=== PATIENT | female | born 1975 | race Two or more races ===

== ENCOUNTER 2018-11-10 11:09 | Inpatient (IN) ==
--- NOTE | 2018-11-10 13:26 | DR.H&P ---
H&P - History & Physical for Day of: H&P Date: 11/10/18 - Chief Complaint Chief Complaint: SOB, CCC, WHEEZING, FATIGUE - History of Present Illness History of Present Illness: 43 HF DIRECT ADMIT FROM DR MACHAOD OFFICE WITH CO SOB, WEAKNESS AND DIZZINESS, CCC WITH WHEEZING. PT HAS BEEN TREATED SINCE 10/16 WITH BRONCHITIS SYMPTOMS WITHOUT IMPROVEMENT. PT HAS HAD IM ROCEPHIN AND IM DECADRON STEROIDS WITH PO ZITHROMAX WITHOUT IMPROVEMENT. PT HAS PMH OF HTN, DENIES ANY DM, ASTHMA OR CAD. PT ADMITTED FOR TREATMENT OF ACUTE RESP ILLNESS. 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 - Social History Does patient currently use any type of tobacco product: No Have you used tobacco products in the last 12 months: No Type of Tobacco Use: None Does any household member use tobacco: No Alcohol Use: None Drug Use: None - Medications Home Medications: hydrocodone Allergy (Verified 04/10/18 12:51) - Review of Systems Constitutional: Fever, Chills, Weakness, Malaise Eyes: No Symptoms Reported ENT: Nose Congestion Respiratory: Cough, Shortness of Breath, SOB with Excertion, Pleuritic Pain, Sputum, Wheezing Cardiovascular: No Symptoms Reported, Light Headedness Gastrointestinal: Nausea Genitourinary: No Symptoms Reported Musculoskeletal: No Symptoms Reported Skin: No Symptoms Reported Neurological: Weakness - Physical Exam Vital Signs: Blood Pressure 123/68 Oriented: Normal Eyes: Normal Ear: Normal Nose: Normal Throat: Normal Respiratory: Wheezes Throughout, RLL Diminished, LLL Diminished Cardiovascular: Tachycardia. negative: Edema : Normal Auscultation: Bowel Sounds: Normal Palpation: Normal Tenderness: Normal Skin: Normal Musculoskeletal: Normal Psychiatric: Anxiety Affect: Anxious Speech Pattern: Clear, Appropriate - Assessment/Plan (1) SOB (shortness of breath) Status: Acute Plan: ADMIT, CXR ON ADMISSION. BLOOD AND SPUTUM CULTURE. IV ATBX, ANTITUSSIVE, ADMISSION LABS CBC CMP. BP CONTROL, RESP THERAPY, SUPPLEMENTAL O2. EKG ON ADMISSION (2) Bronchopneumonia Status: Acute - Allergies Allergies/Adverse Reactions: Allergies Allergy/AdvReac Type Severity Reaction Status Date / Time hydrocodone Allergy Verified 04/10/18 12:51
[2018-11-10] MEDS ORDERED: PATIENT'S HOME MEDICATION (Lisinopril-Hydrochlorothiazide [Lisinopril-Hydrochlorothiazide] PO SCH (13:30)
--- NOTE | 2018-11-10 14:15 | RAD ---
History: Weight loss and shortness of breath Study: PA and lateral chest Comparison: None Findings: There is limited inspiration of grossly clear lungs. The heart size is normal. There is no edema or effusion. No significant bony abnormality is demonstrated. Impression: No evidence for acute or active cardiopulmonary disease Reported By:
[2018-11-10] MEDS ORDERED: NS 1/2 1000 ML IV 1,000 ML IV ONE (14:38)
[2018-11-10] MEDS ORDERED: ZESTRIL TAB 20 MG ONE (14:38)
[2018-11-10 14:40] LABS: BASOPHILS # (AUTO) 0.1 X10^3/uL (0.0-0.1); BASOPHILS % (AUTO) 0.7 % (0.2-1.0); EOSINOPHILS # (AUTO) 0.1 x10^3/uL (0.0-0.2); EOSINOPHILS % (AUTO) 1.8 % (0.9-2.9); HEMATOCRIT 38.2 % (36.0-47.0); HEMOGLOBIN 12.7 g/dL (12.0-16.0); LYMPHOCYTES # (AUTO) 2.5 X10^3/uL (1.3-2.9); LYMPHOCYTES % (AUTO) 31.2 % (21.0-51.0); MEAN CORPUSCULAR HEMOGLOBIN 27.1 pg (27.0-34.0); MEAN CORPUSCULAR HGB CONC 33.3 g/dL (33.0-35.0); MEAN CORPUSCULAR VOLUME 81.5 fL (80.0-100.0); MEAN PLATELET VOLUME 9.8 fL (7.4-11.0); MONOCYTES # (AUTO) 0.5 x10^3/uL (0.3-0.8); MONOCYTES % (AUTO) 6.1 % (0.0-13.0); NEUTROPHILS # (AUTO) 4.7 x10^3/uL (2.2-4.8); NEUTROPHILS % (AUTO) 60.2 % (42.0-75.0); PLATELET COUNT 256 X10^3/uL (150.0-450.0); RED CELL DISTRIBUTION WIDTH 13.1 % (11.6-16.5); WHITE BLOOD COUNT 7.9 X10^3/uL (3.6-10.0)
[2018-11-10 14:51] LABS: ALANINE AMINOTRANSFERASE 38 Units/L (12-78); ALBUMIN 3.9 g/dL (3.4-5.0); ALKALINE PHOSPHATASE 114 Units/L (46-116); ASPARTATE AMINO TRANSFERASE 21 Units/L (15-37); BLOOD UREA NITROGEN 8 mg/dL (7-18); CALCIUM 9.4 mg/dL (8.5-10.1); CARBON DIOXIDE 29.7 mmol/L (21-32); CHLORIDE 102 mmol/L (98-107); CREATININE 0.47 mg/dL (0.55-1.02); SODIUM 139 mmol/L (136-145); TOTAL PROTEIN 8.2 g/dL (6.4-8.2); eGFR NON BLACK RACES > 60 (>60)
[2018-11-10] MEDS: HYDROCHLOROTHIAZIDE 12.5 MG CAP PO SCH (15:07)
[2018-11-10] MEDS: LEVAQUIN PREMIX IV 750 MG 750 MG/150 ML BAG IV SCH (15:07)
[2018-11-10] MEDS: ZOSYN VIAL 4.5 GRAMS 4.5 G in NS 100 ML IV + SPIKE MINIBAG* 100 ML IV SCH ×2 (15:07→21:57)
[2018-11-10] MEDS: ZESTRIL TAB 20 MG PO SCH (15:07)
[2018-11-10] MEDS: NS 1/2 1000 ML IV 1,000 ML IV SCH (15:08)
[2018-11-10] MEDS: PROVENTIL NEB TX 0.083% 2.5MG/ 3ML NEB SCH ×2 (17:00→20:58)
[2018-11-10] MEDS: ROBITUSSIN DM PO SCH ×2 (18:32→21:57)
[2018-11-10] MEDS ORDERED: KLOR-CON PO PRN (19:40)
[2018-11-10] MEDS ORDERED: MAGNESIUM SULFATE 1 GRAM/100 mL PREMIX 1 GM/100 ML BAG IV PRN (19:40)
[2018-11-10] MEDS ORDERED: POTASSIUM CHLORIDE LIQ 20 MEQ UDC PO PRN (19:40)
[2018-11-10] MEDS ORDERED: K-DUR TAB 20 MEQ PO PRN (19:40)
[2018-11-10] MEDS ORDERED: POTASSIUM CHL 40 MEQ/NS 0.45% 500 ML IV PRN (19:40)
[2018-11-10] MEDS ORDERED: K-RIDER 10 MEQ/NS 100 ML 10 MEQ/100 ML BAG IV PRN (19:40)
[2018-11-10] MEDS ORDERED: MICRO K EXTEN CAP 10 MEQ PO PRN (19:40)
[2018-11-10] MEDS ORDERED: POTASSIUM CHL 60 MEQ/NS 0.45% 500 ML IV PRN (19:40)
[2018-11-11] MEDS: ZOSYN VIAL 4.5 GRAMS 4.5 G in NS 100 ML IV + SPIKE MINIBAG* 100 ML IV SCH ×3 (05:00→21:19)
[2018-11-11] MEDS: NS 1/2 1000 ML IV 1,000 ML IV SCH ×3 (05:53→19:23)
[2018-11-11 06:10] LABS: BASOPHILS % (AUTO) 0.6 % (0.2-1.0); EOSINOPHILS # (AUTO) 0.2 x10^3/uL (0.0-0.2); HEMATOCRIT 36.9 % (36.0-47.0); HEMOGLOBIN 12.3 g/dL (12.0-16.0); LYMPHOCYTES % (AUTO) 24.4 % (21.0-51.0); MEAN CORPUSCULAR HEMOGLOBIN 26.9 pg (27.0-34.0); MEAN CORPUSCULAR HGB CONC 33.2 g/dL (33.0-35.0); MEAN CORPUSCULAR VOLUME 80.9 fL (80.0-100.0); MEAN PLATELET VOLUME 9.8 fL (7.4-11.0); MONOCYTES # (AUTO) 0.5 x10^3/uL (0.3-0.8); MONOCYTES % (AUTO) 6.2 % (0.0-13.0); NEUTROPHILS # (AUTO) 5.4 x10^3/uL (2.2-4.8); NEUTROPHILS % (AUTO) 66.8 % (42.0-75.0); PLATELET COUNT 235 X10^3/uL (150.0-450.0); RED BLOOD COUNT 4.56 X10^6/uL (3.5-5.4); RED CELL DISTRIBUTION WIDTH 13.8 % (11.6-16.5); WHITE BLOOD COUNT 8.1 X10^3/uL (3.6-10.0)
[2018-11-11 06:26] LABS: ALANINE AMINOTRANSFERASE 33 Units/L (12-78); ALBUMIN 3.4 g/dL (3.4-5.0); ALKALINE PHOSPHATASE 93 Units/L (46-116); ASPARTATE AMINO TRANSFERASE 17 Units/L (15-37); BLOOD UREA NITROGEN 7 mg/dL (7-18); CALCIUM 8.7 mg/dL (8.5-10.1); CARBON DIOXIDE 27.5 mmol/L (21-32); CHLORIDE 101 mmol/L (98-107); COR NA(FOR HYPERGLY) 138 mmol/L (136-145); CREATININE 0.61 mg/dL (0.55-1.02); SODIUM 138 mmol/L (136-145); TOTAL PROTEIN 7.4 g/dL (6.4-8.2); eGFR NON BLACK RACES > 60 (>60)
[2018-11-11 08:08] VITALS: BMI 29.5
[2018-11-11] MEDS ORDERED: TORADOL 30 MG VIAL IVP ONE (08:19)
[2018-11-11] MEDS: PROVENTIL NEB TX 0.083% 2.5MG/ 3ML NEB SCH ×3 (09:26→18:10)
[2018-11-11] MEDS: ROBITUSSIN DM PO SCH ×4 (09:35→21:19)
[2018-11-11] MEDS: SOLU-Medrol 125 MG VIAL IVP SCH ×3 (09:35→21:19)
[2018-11-11] MEDS: LEVAQUIN PREMIX IV 750 MG 750 MG/150 ML BAG IV SCH (09:35)
[2018-11-11] MEDS: HYDROCHLOROTHIAZIDE 12.5 MG CAP PO SCH (11:06)
[2018-11-11] MEDS: ZESTRIL TAB 20 MG PO SCH (11:06)
[2018-11-11] MEDS ORDERED: NS 1/2 1000 ML IV 1,000 ML IV ONE (12:14)
--- NOTE | 2018-11-11 18:28 | PCM.PROG ---
Progress Note - Progress Note for Day of Date of Exam: 11/11/18 - Subjective Subjective: 43 HF ADMITTED ON 11/10 WITH FEVER AND ACUTE RESP ILLNESS. PT WAS STARTED ON PNEUMONIA PROTOCOL WITH RESP THERAPY. CO FEELING WEAKN THIS AM, BUT LITTLE IMPROVED SINCE ADMISSION. BP RUNNING LOWER THIS AM. CULTURES PENDING. - Past Medical Family Social History Past Med/Fam/Surg Hx: No changes since H&P Allergies: Allergies hydrocodone Allergy (Verified 04/10/18 12:51) - Review of Systems ROS: No change since H&P - Vital Signs and I&O's Vital Signs: Temperature 97.9 F Pulse Rate [Apical] 74 Pulse Rate [Left Radial] 80 Pulse Rate 128 Respiratory Rate 18 Blood Pressure [Left Arm] 147/67 Blood Pressure 123/68 O2 Sat by Pulse Oximetry 98 Intake and Output: Intake & Output 11/09/18 11/10/18 11/11/18 11/12/18 11:59 11:59 11:59 11:59 Intake Total 1765 / 1765 1372 / 1372 Balance 1765 / 1765 1372 / 1372 - Physical Exam Oriented: Normal Eyes: Normal Ear: Normal Nose: Normal Throat: Normal Respiratory: Diminished, Wheezes Cardiovascular: Tachycardia. negative: Edema : Normal Auscultation: Bowel Sounds: Normal Tenderness: Normal Skin: Normal Musculoskeletal: Normal Psychiatric: Anxiety Affect: Anxious Speech Pattern: Clear, Appropriate - Laboratory and Diagnostics Result Diagrams: 11/11/18 05:21 11/11/18 05:21 Labs: 11/10/18 14:28 Sputum - Expectorated Sputum Sputum Culture - Preliminary 11/10/18 14:28 Sputum - Expectorated Sputum - Final Laboratory WBC 8.1 X10^3/uL (3.6-10.0) 11/11/18 05:21 RBC 4.56 X10^6/uL (3.5-5.4) 11/11/18 05:21 Hgb 12.3 g/dL (12.0-16.0) 11/11/18 05:21 Hct 36.9 % (36.0-47.0) 11/11/18 05:21 MCV 80.9 fL (80.0-100.0) 11/11/18 05:21 MCH 26.9 pg (27.0-34.0) L 11/11/18 05:21 MCHC 33.2 g/dL (33.0-35.0) 11/11/18 05:21 RDW 13.8 % (11.6-16.5) 11/11/18 05:21 Plt Count 235 X10^3/uL (150.0-450.0) 11/11/18 05:21 MPV 9.8 fL (7.4-11.0) 11/11/18 05:21 Neut % (Auto) 66.8 % (42.0-75.0) 11/11/18 05:21 Lymph % (Auto) 24.4 % (21.0-51.0) 11/11/18 05:21 Bowman % (Auto) 6.2 % (0.0-13.0) 11/11/18 05:21 Eos % (Auto) 2.0 % (0.9-2.9) 11/11/18 05:21 Baso % (Auto) 0.6 % (0.2-1.0) 11/11/18 05:21 Neut # (Auto) 5.4 x10^3/uL (2.2-4.8) H 11/11/18 05:21 Lymph # (Auto) 2.0 X10^3/uL (1.3-2.9) 11/11/18 05:21 Bowman # (Auto) 0.5 x10^3/uL (0.3-0.8) 11/11/18 05:21 Eos # (Auto) 0.2 x10^3/uL (0.0-0.2) 11/11/18 05:21 Baso # (Auto) 0.0 X10^3/uL (0.0-0.1) 11/11/18 05:21 Absolute Nucleated RBC 0.0 /100WBC 11/11/18 05:21 Sodium 138 mmol/L (136-145) 11/11/18 05:21 Corrected Sodium 138 mmol/L (136-145) 11/11/18 05:21 Potassium 3.9 mmol/L (3.5-5.1) 11/11/18 05:21 Chloride 101 mmol/L (98-107) 11/11/18 05:21 Carbon Dioxide 27.5 mmol/L (21-32) 11/11/18 05:21 BUN 7 mg/dL (7-18) 11/11/18 05:21 Creatinine 0.61 mg/dL (0.55-1.02) 11/11/18 05:21 Est GFR (MDRD) Af Amer > 60 (>60) 11/11/18 05:21 Est GFR (MDRD) Non-Af > 60 (>60) 11/11/18 05:21 Glucose 113 mg/dL (65-99) H 11/11/18 05:21 Calcium 8.7 mg/dL (8.5-10.1) 11/11/18 05:21 Corrected Calcium TNP 11/11/18 05:21 Magnesium 1.7 mg/dL (1.7-2.9) 11/10/18 14:00 Total Bilirubin 0.40 mg/dL (0.2-1.0) 11/11/18 05:21 AST 17 Units/L (15-37) 11/11/18 05:21 ALT 33 Units/L (12-78) 11/11/18 05:21 Alkaline Phosphatase 93 Units/L (46-116) 11/11/18 05:21 Total Protein 7.4 g/dL (6.4-8.2) 11/11/18 05:21 Albumin 3.4 g/dL (3.4-5.0) 11/11/18 05:21 Globulin 4.0 g/dL (2.5-4.5) 11/11/18 05:21 Albumin/Globulin Ratio 0.9 Ratio (1.1-2.1) L 11/11/18 05:21 Influenza Type A (PCR) Negative (NEGATIVE) 11/10/18 14:00 Influenza Type B (PCR) Negative (NEGATIVE) 11/10/18 14:00 - Plan (1) SOB (shortness of breath) Status: Acute Plan: CXR ON ADMISSION. BLOOD AND SPUTUM CULTURE. IV ATBX, ANTITUSSIVE, ADMISSION LABS CBC CMP. BP CONTROL, RESP THERAPY, SUPPLEMENTAL O2. EKG ON ADMISSION (2) Bronchopneumonia Status: Acute
[2018-11-11 19:27] LABS: CKMB % 1.5 % (<4); CREATINE KINASE 69 Units/L (26-192); CREATINE KINASE MB < 1.0 ng/mL (0-4.0); TROPONIN I < 0.02 ng/mL (0-1.5)
[2018-11-12] MEDS: XOPENEX 1.25 MG/3 ML NEBULE NEB SCH ×2 (00:59→05:38)
[2018-11-12] MEDS: ZOSYN VIAL 4.5 GRAMS 4.5 G in NS 100 ML IV + SPIKE MINIBAG* 100 ML IV SCH (05:56)
[2018-11-12 06:07] LABS: BASOPHILS % (AUTO) 0.4 % (0.2-1.0); HEMATOCRIT 36.2 % (36.0-47.0); HEMOGLOBIN 11.8 g/dL (12.0-16.0); LYMPHOCYTES # (AUTO) 1.2 X10^3/uL (1.3-2.9); LYMPHOCYTES % (AUTO) 9.8 % (21.0-51.0); MEAN CORPUSCULAR HEMOGLOBIN 26.7 pg (27.0-34.0); MEAN CORPUSCULAR HGB CONC 32.7 g/dL (33.0-35.0); MEAN CORPUSCULAR VOLUME 81.7 fL (80.0-100.0); MEAN PLATELET VOLUME 9.6 fL (7.4-11.0); MONOCYTES # (AUTO) 0.2 x10^3/uL (0.3-0.8); MONOCYTES % (AUTO) 1.3 % (0.0-13.0); NEUTROPHILS # (AUTO) 11.2 x10^3/uL (2.2-4.8); NEUTROPHILS % (AUTO) 88.5 % (42.0-75.0); PLATELET COUNT 262 X10^3/uL (150.0-450.0); RED BLOOD COUNT 4.44 X10^6/uL (3.5-5.4); RED CELL DISTRIBUTION WIDTH 13.5 % (11.6-16.5); WHITE BLOOD COUNT 12.7 X10^3/uL (3.6-10.0)
[2018-11-12 06:24] LABS: ALANINE AMINOTRANSFERASE 40 Units/L (12-78); ALBUMIN 3.4 g/dL (3.4-5.0); ALKALINE PHOSPHATASE 96 Units/L (46-116); ASPARTATE AMINO TRANSFERASE 22 Units/L (15-37); BLOOD UREA NITROGEN 7 mg/dL (7-18); CALCIUM 9.1 mg/dL (8.5-10.1); CARBON DIOXIDE 22.9 mmol/L (21-32); CHLORIDE 104 mmol/L (98-107); COR NA(FOR HYPERGLY) 140 mmol/L (136-145); SODIUM 138 mmol/L (136-145); TOTAL PROTEIN 7.4 g/dL (6.4-8.2); eGFR NON BLACK RACES > 60 (>60)
--- NOTE | 2018-11-12 07:29 | RAD ---
HISTORY: Weight loss, shortness of breath Study: Chest AP portable Comparison: 11/10/2018 Findings: The heart is within normal limits in size. The duong are normal. The lungs are free of acute alveolar infiltrates. Mild chronic appearing interstitial lung changes are present. No pleural effusions are identified. The bony thorax is unremarkable. IMPRESSION: No acute infiltrates Mild interstitial lung changes likely chronic Reported By:
[2018-11-12] MEDS: ROBITUSSIN DM PO SCH (08:52)
[2018-11-12 08:54] VITALS: BP 105/60
[2018-11-12] MEDS ORDERED: LEVAQUIN PREMIX IV 500 MG 500 MG/100 ML BAG IV SCH (09:00)
[2018-11-12] MEDS: HYDROCHLOROTHIAZIDE 12.5 MG CAP PO SCH (09:28)
[2018-11-12] MEDS: ZESTRIL TAB 20 MG PO SCH (09:28)
== END 2018-11-12 11:55 | disposition home or self-care (01) | DRG 195 ==
LOC: ICU 13:11
PROVIDERS: ADMIT Internal Medicine; ATTEND Internal Medicine
DX: I10 Essential (primary) hypertension; R53.1 Weakness; R63.4 Abnormal weight loss; R51 Headache; R42 Dizziness and giddiness; R06.02 Shortness of breath; J18.0 Bronchopneumonia, unspecified organism
CPT/HCPCS: 36415; 71010; 71020; 71045; 71046; 80053; 82550; 82553; 83735; 84484; 85025; 87040; 87070; 87205; 87502; 93005; 94640; 94669; A4222; J1885; J1956; J2543; J2930; J7050; J7613